=== PATIENT | male | born 1960 | race Caucasian/White ===

== ENCOUNTER 2021-06-20 16:16 | Emergency (ER) | payer MEDICAID ==
[~2021-06-20] VITALS: Ht 154.9 cm; Wt 66.2 kg
[2021-06-20 16:18] VITALS: BP 136/98
--- NOTE | 2021-06-20 16:24 | NUR ---
Pt ambulated to bed 10.
--- NOTE | 2021-06-20 16:29 | NUR ---
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 DENIES FEVER/CHILLS. DENIES N/V/D. DENIES PMH NKA
--- NOTE | 2021-06-20 16:31 | NUR ---
KRISTI IBARRA AT PT BEDSIDE FOR FURTHER EVALUATION.
[2021-06-20] MEDS ORDERED: NAPR-54 PO (16:33)
[2021-06-20] MEDS ORDERED: BACI1PAC6 TP (16:33)
[2021-06-20] MEDS ORDERED: CEPH-588 PO (16:33)
[2021-06-20] MEDS ORDERED: KETOROLAC 30 MG/ML VIAL IM ONE (16:35)
--- NOTE | 2021-06-20 16:59 | NUR ---
Patient discharged with v/s stable. Written and verbal after care instructions given FOR CELLULITIS AND CHEMICAL BURN and explained. Patient alert, oriented and verbalized understanding of instructions. Ambulatory with to car. All questions addressed prior to discharge. ID band removed. Patient advised to follow up with PMD. Rx of BACITRACIN, KEFLEX, AND NAPROXEN given. Patient educated on indication of medication including possible reaction and side effects. Opportunity to ask questions provided and answered.
== END 2021-06-20 16:59 | disposition home or self-care (01) ==
LOC: MED 16:16
DX: T22.012A Burn of unspecified degree of left forearm, initial encounter (principal)
CPT/HCPCS: 96372; 99283; J1885

== ENCOUNTER 2021-06-22 19:18 | Emergency (ER) | payer MEDICAID ==
[~2021-06-22] VITALS: Ht 157.5 cm; Wt 65.3 kg
[~2021-06-22 19:18] MED LIST: BACI1PAC6 TP; CEPH-588 PO; NAPR-54 PO
[2021-06-22 19:59] VITALS: BP 117/71
--- NOTE | 2021-06-22 20:02 | NUR ---
TO LOBBY A/W BED AMBULATORY
--- NOTE | 2021-06-22 22:00 | NUR ---
SEEN AND EXAMINED BY CHETAN
[2021-06-22 22:30] VITALS: BP 121/78
--- NOTE | 2021-06-22 22:30 | NUR ---
Patient discharged with v/s stable. Written and verbal after care instructions given and explained. Patient verbalized understanding. Ambulatory with steady gait. All questions addressed prior to discharge. Advised to follow up with PMD.
== END 2021-06-22 22:30 | disposition home or self-care (01) ==
LOC: MED 19:18
DX: T23.401A Corrosion of unspecified degree of right hand, unspecified site, initial encounter (principal); T23.402A Corrosion of unspecified degree of left hand, unspecified site, initial encounter; Y92.89 Other specified places as the place of occurrence of the external cause
CPT/HCPCS: 99281

== ENCOUNTER 2022-03-26 08:33 | Emergency (ER) | payer MEDICAID, OTHER ==
[~2022-03-26] VITALS: Ht 154.9 cm; Wt 62.1 kg
[2022-03-26 08:38] VITALS: BP 143/90
--- NOTE | 2022-03-26 09:13 | NUR ---
61/M C/O LEFT SIDED HEAD AND ARM HADLEY S/P FALL AFTER BOX FALLING ON THE PATIENT AT WORK SUNDAY. DENIES KO. DENIES BLURRY VISION. DENIES NVD. AAOX4, AMBULATORY. VITALS STABLE. DENIES BLOOD THINNER USE PMH: DENIES NKA
[2022-03-26 09:14] VITALS: BP 141/85
[2022-03-26] MEDS ORDERED: ACETAMINOPHEN EXTRA STRENGTH 500 MG TAB PO ONE (09:25)
--- NOTE | 2022-03-26 09:31 | NUR ---
PT WENT FOR CT
[2022-03-26] MEDS ORDERED: IBUP-2213 PO (10:20)
[2022-03-26] MEDS ORDERED: METH-1691 PO (10:21)
[2022-03-26] MEDS ORDERED: LID5T TP (10:21)
== END 2022-03-26 10:25 | disposition home or self-care (01) ==
LOC: MED 08:33
DX: S29.012A Strain of muscle and tendon of back wall of thorax, initial encounter (principal); Y04.8XXA Assault by other bodily force, initial encounter; Y93.89 Activity, other specified; Y92.89 Other specified places as the place of occurrence of the external cause; Y99.8 Other external cause status
CPT/HCPCS: 70450; 72080; 72125; 99284